=== PATIENT | female | born 1985 | race Hispanic/Latino ===

== ENCOUNTER 2023-06-03 05:56 | Emergency (ER) | payer OTHER ==
[~2023-06-03] VITALS: Ht 165.1 cm; Wt 71.7 kg
[2023-06-03] MEDS ORDERED: LACTATED RINGERS 1000ML 1,000 ML IV ONE (06:30)
[2023-06-03] MEDS ORDERED: ONDANSETRON 4MG INJ IVP ONE (06:30)
[2023-06-03] MEDS ORDERED: MORPHINE 4 MG SYG IVP ONE (06:30)
[2023-06-03] MEDS ORDERED: FAMOTIDINE 20MG TAB PO ONE (06:30)
[2023-06-03 06:46] LABS: BASOPHILS # (AUTO) 0.05 K/uL (0.00-0.20); BASOPHILS % (AUTO) 0.5 % (0.0-5.0); EOSINOPHILS # (AUTO) 0.57 K/uL (0.00-0.70); EOSINOPHILS % (AUTO) 5.4 % (0.0-8.0); HEMATOCRIT 40.9 % (36-48); IMMATURE GRANULOCYTE ABSOLUTE 0.04 K/uL (0-1); MEAN CORPUSCULAR HEMOGLOBIN 30.7 pg (27.0-33.0); MEAN CORPUSCULAR HGB CONC 32.8 g/dL (32.0-36.0); MEAN CORPUSCULAR VOLUME 93.8 fL (79-99); MONOCYTES # (AUTO) 0.5 K/uL (0.1-1.0); MONOCYTES % (AUTO) 4.9 % (3.0-13.0); NEUTROPHILS # (AUTO) 6.5 K/uL (1.8-7.7); NEUTROPHILS % (AUTO) 60.8 % (40.0-77.0); PLATELET COUNT (AUTO) 245 K/uL (130-400); RED BLOOD CELL COUNT(AUTO) 4.36 MIL/uL (4.00-5.50); RED CELL DISTRIBUTION WIDTH 12.7 % (11.0-15.5); WHITE BLOOD COUNT (AUTO) 10.6 K/uL (4.8-10.8)
[2023-06-03 07:05] LABS: ALBUMIN 3.7 g/dL (3.5-5.0); BILIRUBIN,TOTAL 0.2 mg/dL (0.2-1.0); CREATININE 0.8 mg/dL (0.5-1.5); POTASSIUM 3.7 mmol/L (3.5-5.1); TOTAL PROTEIN, SERUM 7.4 g/dL (6.0-8.3)
[2023-06-03 07:51] LABS: APPEARANCE,URINE CLEAR (CLEAR); BILIRUBIN,URINE NEGATIVE (NEGATIVE); COLOR,URINE COLORLESS (YELLOW); GLUCOSE, URINE (UA) NEGATIVE (NEGATIVE); KETONES,URINE NEGATIVE (NEGATIVE); LEUKOCYTE ESTERASE ,URINE NEGATIVE Leu/uL (NEGATIVE); NITRATE,URINE NEGATIVE (NEGATIVE); OCCULT BLOOD,URINE NEGATIVE (NEGATIVE); PH,URINE 7.5 (5.0-8.0); PROTEIN,URINE NEGATIVE (NEGATIVE); UROBILINOGEN,URINE 0.2 mg/dL (0.2-1.0)
[2023-06-03 07:57] LABS: ADD UA MICROSCOPIC NO
[2023-06-03 07:58] LABS: HCG,QUALITATIVE URINE NEGATIVE (NEGATIVE)
[2023-06-03 09:18] VITALS: BP 98/60; PULSE 54; RESP 16; O2SAT 100
[2023-06-03] MEDS ORDERED: KETOROLAC 15MG/ML VIAL (15MG/ML) IV ONE (09:30)
[2023-06-03] MEDS ORDERED: FAMO-136 PO (09:30)
[2023-06-03] MEDS ORDERED: IBUP-2070 PO (09:30)
[2023-06-03] MEDS ORDERED: DICY10 PO (09:30)
== END 2023-06-03 09:41 | disposition home or self-care (01) ==
LOC: EDH 05:56
DX: R10.11 Right upper quadrant pain (principal); R11.2 Nausea with vomiting, unspecified; Z98.890 Other specified postprocedural states
CPT/HCPCS: 99285; 96374; 76705; 96361; 96375; 80053; 83690; 85025; 81003; 81025; 36415; J7120; J2405; J2270; J1885

== ENCOUNTER 2023-09-12 00:31 | Emergency (ER) | payer OTHER ==
[~2023-09-12] VITALS: Ht 154.9 cm; Wt 66.8 kg
[~2023-09-12 00:31] MED LIST: DICY10 PO; FAMO-136 PO; IBUP-2070 PO
[2023-09-12 00:58] LABS: APPEARANCE,URINE CLEAR (CLEAR); BILIRUBIN,URINE NEGATIVE (NEGATIVE); COLOR,URINE COLORLESS (YELLOW); GLUCOSE, URINE (UA) NEGATIVE (NEGATIVE); KETONES,URINE NEGATIVE (NEGATIVE); LEUKOCYTE ESTERASE ,URINE NEGATIVE Leu/uL (NEGATIVE); NITRATE,URINE NEGATIVE (NEGATIVE); OCCULT BLOOD,URINE NEGATIVE (NEGATIVE); PH,URINE 6.5 (5.0-8.0); PROTEIN,URINE NEGATIVE (NEGATIVE); UROBILINOGEN,URINE 0.2 mg/dL (0.2-1.0)
[2023-09-12 00:59] LABS: HCG,QUALITATIVE URINE NEGATIVE (NEGATIVE)
[2023-09-12] MEDS ORDERED: 0.9%NACL 1000ML 1,000 ML IV ONE (01:00)
[2023-09-12] MEDS ORDERED: KETOROLAC 30MG VIAL (30MG/ML) IVP ONE (01:00)
[2023-09-12] MEDS ORDERED: ONDANSETRON 4MG INJ IVP ONE (01:00)
[2023-09-12 01:05] LABS: ADD UA MICROSCOPIC NO
[2023-09-12 01:14] LABS: BASOPHILS # (AUTO) 0.06 K/uL (0.00-0.20); BASOPHILS % (AUTO) 0.6 % (0.0-5.0); EOSINOPHILS # (AUTO) 0.57 K/uL (0.00-0.70); EOSINOPHILS % (AUTO) 5.6 % (0.0-8.0); HEMATOCRIT 42.5 % (36-48); IMMATURE GRANULOCYTE ABSOLUTE 0.04 K/uL (0-1); LYMPHOCYTES # (AUTO) 3.9 K/uL (1.0-4.8); LYMPHOCYTES % (AUTO) 38.6 % (21.0-51.0); MEAN CORPUSCULAR HEMOGLOBIN 31.6 pg (27.0-33.0); MEAN CORPUSCULAR HGB CONC 33.2 g/dL (32.0-36.0); MEAN CORPUSCULAR VOLUME 95.3 fL (79-99); MONOCYTES # (AUTO) 0.5 K/uL (0.1-1.0); MONOCYTES % (AUTO) 5.1 % (3.0-13.0); NEUTROPHILS % (AUTO) 49.7 % (40.0-77.0); PLATELET COUNT (AUTO) 275 K/uL (130-400); RED BLOOD CELL COUNT(AUTO) 4.46 MIL/uL (4.00-5.50); WHITE BLOOD COUNT (AUTO) 10.1 K/uL (4.8-10.8)
[2023-09-12 01:43] LABS: CREATININE 0.8 mg/dL (0.5-1.5); POTASSIUM 3.6 mmol/L (3.5-5.1)
[2023-09-12 01:47] LABS: ALBUMIN 3.8 g/dL (3.5-5.0); BILIRUBIN,TOTAL 0.2 mg/dL (0.2-1.0); TOTAL PROTEIN, SERUM 7.8 g/dL (6.0-8.3)
[2023-09-12] MEDS ORDERED: MORPHINE 2 MG SYG IVP ONE ×2 (02:00)
[2023-09-12] MEDS ORDERED: IBUP-1493 PO (02:07)
[2023-09-12] MEDS ORDERED: ONDA-104 PO (02:07)
[2023-09-12 02:18] LABS: INR 0.98 (0.85-1.15); PROTHROMBIN TIME 11.4 SEC (9.6-11.6)
[2023-09-12 02:30] VITALS: BP 122/68; PULSE 64; RESP 16; O2SAT 98
== END 2023-09-12 02:32 | disposition home or self-care (01) ==
LOC: EDH 00:31
DX: K80.20 Calculus of gallbladder without cholecystitis without obstruction (principal); Z79.899 Other long term (current) drug therapy; Z98.890 Other specified postprocedural states
CPT/HCPCS: 99285; 96374; 76705; 96361; 96375; 80053; 83690; 85025; 85610; 85730; 83605; 81003; 81025; 36415; J7030; J2405; J1885; J2270

== ENCOUNTER 2023-10-06 20:24 | Inpatient (IN) | payer OTHER ==
[~2023-10-06] VITALS: Ht 154.9 cm; Wt 68.3 kg
[~2023-10-06 20:24] MED LIST changes: +IBUP-1493 PO; -IBUP-2070 PO; +ONDA-104 PO
[2023-10-06 21:29] LABS: BASOPHILS # (AUTO) 0.07 K/uL (0.00-0.20); BASOPHILS % (AUTO) 0.6 % (0.0-5.0); EOSINOPHILS % (AUTO) 6.8 % (0.0-8.0); HEMATOCRIT 43.9 % (36-48); IMMATURE GRANULOCYTE ABSOLUTE 0.03 K/uL (0-1); LYMPHOCYTES # (AUTO) 3.8 K/uL (1.0-4.8); LYMPHOCYTES % (AUTO) 32.5 % (21.0-51.0); MEAN CORPUSCULAR HEMOGLOBIN 30.8 pg (27.0-33.0); MEAN CORPUSCULAR HGB CONC 32.8 g/dL (32.0-36.0); MEAN CORPUSCULAR VOLUME 93.8 fL (79-99); MONOCYTES # (AUTO) 0.6 K/uL (0.1-1.0); MONOCYTES % (AUTO) 4.8 % (3.0-13.0); NEUTROPHILS # (AUTO) 6.4 K/uL (1.8-7.7); PLATELET COUNT (AUTO) 284 K/uL (130-400); RED BLOOD CELL COUNT(AUTO) 4.68 MIL/uL (4.00-5.50); RED CELL DISTRIBUTION WIDTH 12.9 % (11.0-15.5); WHITE BLOOD COUNT (AUTO) 11.7 K/uL (4.8-10.8)
[2023-10-06] MEDS ORDERED: LIDOCAINE HCL 2% VISCOUS 15 ML UDCUP PO ONE (21:30)
[2023-10-06] MEDS ORDERED: FAMOTIDINE 20MG VIAL IV ONE (21:30)
[2023-10-06] MEDS ORDERED: DICYCLOMINE HCL 10 MG/5 ML ML PO ONE (21:30)
[2023-10-06] MEDS ORDERED: METOCLOPRAMIDE 10 MG/2 ML VIAL IVP ONE (21:30)
[2023-10-06] MEDS ORDERED: MAG/ALUM/SIMETH 30 ML UDCUP PO ONE (21:30)
[2023-10-06] MEDS ORDERED: MORPHINE 2 MG SYG IVP ONE ×2 (21:30→23:00)
[2023-10-06] MEDS ORDERED: LACTATED RINGERS 1000ML 1,000 ML IV ONE (21:30)
[2023-10-06 21:42] LABS: CREATININE 0.9 mg/dL (0.5-1.5); POTASSIUM 3.3 mmol/L (3.5-5.1)
[2023-10-06 21:46] LABS: ALBUMIN 4.7 g/dL (3.5-5.0); BILIRUBIN,TOTAL 0.3 mg/dL (0.2-1.0); TOTAL PROTEIN, SERUM 9.3 g/dL (6.0-8.3)
[2023-10-06] MEDS ORDERED: CEFTRIAXONE 2GM VIAL IVPB ONE (23:00)
[2023-10-06] MEDS ORDERED: IOHEXOL 350 MG/ML 100ML INFUS..BTL IV ONE (23:36)
[2023-10-07] VITALS (10 sets, daily range): BP systolic 95–142; BP diastolic 48–71; PULSE 47–76; RESP 16–20; O2SAT 98–100
[2023-10-07] MEDS ORDERED: MORPHINE 2 MG SYG IV PRN
[2023-10-07] MEDS ORDERED: MORPHINE 4 MG SYG IV PRN
[2023-10-07] MEDS ORDERED: ONDANSETRON 4MG INJ IV PRN
[2023-10-07] MEDS ORDERED: ACETAMINOPHEN 325 MG TAB PO PRN ×2
[2023-10-07] MEDS ORDERED: MAGNESIUM 2GM PREMIX 50ML 50 ML IV PRN (00:30)
[2023-10-07] MEDS ORDERED: POTASSIUM CHLORIDE 20MEQ/100ML 100 ML IV PRN (00:30)
[2023-10-07] MEDS: ZOSYN 3.375GM+NS 50ML 50 ML IV SCH ×3 (04:26→20:09)
[2023-10-07 07:03] LABS: BASOPHILS # (AUTO) 0.05 K/uL (0.00-0.20); BASOPHILS % (AUTO) 0.5 % (0.0-5.0); EOSINOPHILS # (AUTO) 0.54 K/uL (0.00-0.70); EOSINOPHILS % (AUTO) 5.2 % (0.0-8.0); HEMATOCRIT 37.4 % (36-48); IMMATURE GRANULOCYTE ABSOLUTE 0.03 K/uL (0-1); LYMPHOCYTES # (AUTO) 3.4 K/uL (1.0-4.8); LYMPHOCYTES % (AUTO) 32.1 % (21.0-51.0); MEAN CORPUSCULAR HEMOGLOBIN 31.1 pg (27.0-33.0); MEAN CORPUSCULAR HGB CONC 32.9 g/dL (32.0-36.0); MEAN CORPUSCULAR VOLUME 94.7 fL (79-99); MONOCYTES # (AUTO) 0.6 K/uL (0.1-1.0); MONOCYTES % (AUTO) 5.8 % (3.0-13.0); NEUTROPHILS # (AUTO) 5.9 K/uL (1.8-7.7); NEUTROPHILS % (AUTO) 56.1 % (40.0-77.0); PLATELET COUNT (AUTO) 217 K/uL (130-400); RED BLOOD CELL COUNT(AUTO) 3.95 MIL/uL (4.00-5.50); RED CELL DISTRIBUTION WIDTH 12.7 % (11.0-15.5); WHITE BLOOD COUNT (AUTO) 10.5 K/uL (4.8-10.8)
[2023-10-07 07:13] LABS: CREATININE 0.8 mg/dL (0.5-1.5); MAGNESIUM 2.1 mg/dL (1.80-2.40); PHOSPHORUS 3.9 mg/dL (2.5-4.9); POTASSIUM 3.7 mmol/L (3.5-5.1)
[2023-10-07 07:43] LABS: INR 1.01 (0.85-1.15); PROTHROMBIN TIME 11.7 SEC (9.6-11.6)
[2023-10-07 07:45] LABS: PARTIAL THROMBOPLASTIN TIME 28.2 SEC (26.3-35.5)
[2023-10-07] MEDS: FAMOTIDINE 20MG VIAL IV SCH ×2 (09:16→20:10)
[2023-10-07] MEDS: LACTATED RINGERS 1000ML 1,000 ML IV SCH ×2 (13:20)
[2023-10-08] VITALS (22 sets, daily range): BP systolic 96–122; BP diastolic 48–73; PULSE 51–62; RESP 15–20; O2SAT 97–100
[2023-10-08] MEDS: LACTATED RINGERS 1000ML 1,000 ML IV SCH ×2 (02:40→15:34)
[2023-10-08] MEDS: ZOSYN 3.375GM+NS 50ML 50 ML IV SCH ×3 (04:19→20:55)
[2023-10-08] MEDS: FAMOTIDINE 20MG VIAL IV SCH ×2 (08:50→20:55)
[2023-10-08] MEDS ORDERED: BUPIVACAINE/PF 0.25% 10ML VIAL IJ ONE ×2 (18:28→19:01)
[2023-10-08] MEDS ORDERED: LIDOCAINE HCL 1% 10 ML VIAL ONE (18:28)
[2023-10-08] MEDS ORDERED: PROPOFOL 10 MG/ML 20ML VIAL IV ONE (18:34)
[2023-10-08] MEDS ORDERED: LIDOCAINE PF 100MG/5ML (2%) SYRINGE 5ML ONE (18:34)
[2023-10-08] MEDS ORDERED: MIDAZOLAM HCL 1 MG/ML 2ML VIAL ONE (18:35)
[2023-10-08] MEDS ORDERED: FENTANYL CITRATE PF 50 MCG/1 ML 2ML VIAL ONE (18:35)
[2023-10-08] MEDS ORDERED: ROCURONIUM 10MG/1ML SYR 10 MG/ML ML ONE (18:35)
[2023-10-08] MEDS ORDERED: LIDOCAINE HCL 4% LTA SOL 4 ML VIAL ONE (18:37)
[2023-10-08] MEDS ORDERED: GLYCOPYRROLATE 1 MG/5 ML SYRINGE ONE (18:39)
[2023-10-08] MEDS ORDERED: ONDANSETRON 4MG INJ ONE ×2 (18:39→20:23)
[2023-10-08] MEDS ORDERED: NEOSTIGMINE 5MG/5ML SYR IV ONE (18:39)
[2023-10-08] MEDS ORDERED: LIDOCAINE HCL 1% 10 ML VIAL MISC ONE (19:02)
[2023-10-08] MEDS ORDERED: KETOROLAC 30MG VIAL (30MG/ML) ONE (19:55)
[2023-10-08] MEDS ORDERED: MEPERIDINE-PF 25 MG/ML SYG ONE (20:24)
[2023-10-09] VITALS (7 sets, daily range): BP systolic 100–109; BP diastolic 50–63; PULSE 53–69; RESP 16–20; O2SAT 97
[2023-10-09] MEDS: ZOSYN 3.375GM+NS 50ML 50 ML IV SCH ×2 (04:40→12:14)
[2023-10-09 06:27] LABS: ALBUMIN 3.1 g/dL (3.5-5.0); BILIRUBIN,DIRECT 0.2 mg/dL (0.0-0.3); BILIRUBIN,TOTAL 0.5 mg/dL (0.2-1.0); TOTAL PROTEIN, SERUM 6.6 g/dL (6.0-8.3)
[2023-10-09] MEDS: FAMOTIDINE 20MG VIAL IV SCH (08:59)
[2023-10-09] MEDS: LACTATED RINGERS 1000ML 1,000 ML IV SCH (08:59)
== END 2023-10-09 18:11 | disposition home or self-care (01) | DRG 419 ==
LOC: EDH 20:24 → EDHIP 20:25 → UNDOADMIN 23:32 → EDHIP 23:33 → 2CH 10-07 13:01 → 3BH 10-07 16:48
PROVIDERS: ADMIT Internal Medicine; ATTEND Internal Medicine
PROC: 0FT44ZZ Resection of Gallbladder, Percutaneous Endoscopic Approach (ICD-10-PCS; principal; 2023-10-08 18:48)
DX: K80.00 Calculus of gallbladder with acute cholecystitis without obstruction (principal); E87.6 Hypokalemia; K76.0 Fatty (change of) liver, not elsewhere classified; F17.210 Nicotine dependence, cigarettes, uncomplicated; K66.0 Peritoneal adhesions (postprocedural) (postinfection); K82.8 Other specified diseases of gallbladder; Z59.7 Insufficient social insurance and welfare support; Z75.3 Unavailability and inaccessibility of health-care facilities; Z82.49 Family history of ischemic heart disease and other diseases of the circulatory system; Z83.3 Family history of diabetes mellitus; Z86.32 Personal history of gestational diabetes
CPT/HCPCS: 36415; 71045; 74170; 76705; 78226; 80048; 80053; 80076; 81025; 83605; 83690; 83735; 84100; 84145; 84484; 85025; 85610; 85730; 86850; 86900; 86901; 87040; 93005; A9537; G0378; J0696; J1885; J2001; J2175; J2250; J2270; J2405; J2543; J2704; J2710; J2765; J3010; J3490; J7120; Q9967; J0665